=== PATIENT | female | born 1965 | race Caucasian/White ===

== ENCOUNTER → 2017-10-19 11:11 | Outpatient (CLI) | payer BC, SELFPAY ==
[2017-10-19 12:59] LABS: Estradiol 15.8 pg/mL; Follicle Stimulating Hormone 41.3 mIU/mL
== END ==
PROVIDERS: Family Provider Internal Medicine; PCP Internal Medicine; Visit Provider Obstetrics & Gynecology
DX: N95.1 Menopausal and female climacteric states (principal)
CPT/HCPCS: 82670; 83001

== ENCOUNTER → 2019-11-21 | Outpatient (CLI) | payer BC, SELFPAY ==
[2019-11-21 13:56] VITALS: BMI 30.4
[2019-11-25 14:26] LABS: HPV APTIMA, High Risk Negative (Negative)
== END | disposition home or self-care (01) ==
LOC: LABSPEC 16:45
PROVIDERS: PCP Internal Medicine; Referring Provider Obstetrics & Gynecology; Visit Provider Obstetrics & Gynecology
DX: Z12.4 Encounter for screening for malignant neoplasm of cervix (principal)
CPT/HCPCS: 87624; 88175; G0145

== ENCOUNTER → 2020-06-27 11:34 | Outpatient (CLI) | payer BC, SELFPAY ==
[2020-06-27 10:59] VITALS: BMI 27.1
[2020-06-27 13:20] LABS: Follicle Stimulating Hormone 22.1 mIU/mL
== END ==
PROVIDERS: PCP Student in an Organized Health Care Education/Training Program; Referring Provider Nurse Practitioner Women's Health; Visit Provider Nurse Practitioner Women's Health
DX: N92.1 Excessive and frequent menstruation with irregular cycle (principal)
CPT/HCPCS: 36415; 83001

== ENCOUNTER → 2020-07-04 13:53 | Outpatient (CLI) | payer BC, SELFPAY ==
[2020-06-27 10:59] VITALS: BMI 27.1
--- NOTE | 2020-07-04 13:56 | US_ITS ---
INDICATION: menorrhagia EXAMINATION: US Transvaginal Non-OB TECHNIQUE: Transabdominal and transvaginal (for optimal evaluation of the adnexa) pelvic ultrasound was performed. Grayscale, spectral waveform, and color flow Doppler evaluation of the adnexa. COMPARISON: None. FINDINGS: UTERUS: Anteverted. The uterus measures 8.9 x 5.7 x 5.1 cm. There is no uterine mass. The endometrial stripe measures 5 mm in AP diameter which is within normal limits. Nabothian cyst. IUD is present in appropriate position. RIGHT OVARY: Measures 4.3 x 1.8 x 1.6 cm. Non-enlarged, normal echogenicity. There is normal arterial inflow and venous outflow present in the right ovary. 2.2 cm dominant follicle. LEFT OVARY: Measures 2.6 x 1.7 x 1.2 cm. Non-enlarged, normal echogenicity. There is normal arterial inflow and venous outflow present in the left ovary. FREE FLUID: None. US/Transvaginal Non- IMPRESSION: Normal pelvic ultrasound. Electronically Signed: Lewis Martins MD at 16:33 EDT Tel , Service support ,
--- NOTE | 2020-07-04 13:56 | US_ITS ---
INDICATION: menorrhagia EXAMINATION: US Transvaginal Non-OB TECHNIQUE: Transabdominal and transvaginal (for optimal evaluation of the adnexa) pelvic ultrasound was performed. Grayscale, spectral waveform, and color flow Doppler evaluation of the adnexa. COMPARISON: None. FINDINGS: UTERUS: Anteverted. The uterus measures 8.9 x 5.7 x 5.1 cm. There is no uterine mass. The endometrial stripe measures 5 mm in AP diameter which is within normal limits. Nabothian cyst. IUD is present in appropriate position. RIGHT OVARY: Measures 4.3 x 1.8 x 1.6 cm. Non-enlarged, normal echogenicity. There is normal arterial inflow and venous outflow present in the right ovary. 2.2 cm dominant follicle. LEFT OVARY: Measures 2.6 x 1.7 x 1.2 cm. Non-enlarged, normal echogenicity. There is normal arterial inflow and venous outflow present in the left ovary. FREE FLUID: None. US/Pelvic (Non ) IMPRESSION: Normal pelvic ultrasound. Electronically Signed: Lewis aMrtins MD at 16:33 EDT Tel , Service support ,
== END ==
PROVIDERS: PCP Student in an Organized Health Care Education/Training Program; Referring Provider Nurse Practitioner Women's Health; Visit Provider Nurse Practitioner Women's Health
DX: N92.1 Excessive and frequent menstruation with irregular cycle (principal)
CPT/HCPCS: 76830; 76856

== ENCOUNTER → 2023-08-27 | Outpatient (CLI) | payer OTHER, SELFPAY ==
--- NOTE | 2023-08-27 10:54 | VDLE_ITS ---
Reason For Study: Rt calf pain RIGHT LEFT GSV is normal. CFV is compressible, spontaneous, phasic, CFV is compressible, spontaneous, phasic, competent, and demonstrates normal competent and demonstrates normal augmentation. augmentation. FV is compressible, spontaneous, phasic, competent and demonstrates normal augmentation. POP V is compressible, spontaneous, phasic, competent and demonstrates normal augmentation. T/P Trunk is compressible. PTV is compressible. RT PerV is compressible. Procedure This is a venous duplex using B-mode, color flow and spectral Doppler. Exam performed in department. A preliminary report was called and/or faxed to [facility]. VL/Venous Duplex US, Unilateral Interpretation Summary There is no evidence of right lower extremity deep vein thrombosis. Right great saphenous vein appears patent and compressible segmentally. Normal flow patterns left common f emoral vein Ordering Physician: FAVIOLA HUNTLEY Referring Physician: FAVIOLA HUNTLEY Performed By: Michelle Valverde RVT and Student
== END | disposition home or self-care (01) ==
LOC: CVS 10:49
PROVIDERS: PCP Student in an Organized Health Care Education/Training Program
DX: M79.661 Pain in right lower leg (principal); M79.89 Other specified soft tissue disorders
CPT/HCPCS: 93971

== ENCOUNTER → 2024-05-09 | Outpatient (CLI) | payer BC, SELFPAY ==
[2024-05-13 14:08] LABS: HPV APTIMA, High Risk Negative (Negative)
== END | disposition home or self-care (01) ==
LOC: LABSPEC 14:48
PROVIDERS: PCP Student in an Organized Health Care Education/Training Program; Referring Provider Obstetrics & Gynecology; Visit Provider Obstetrics & Gynecology
DX: Z12.4 Encounter for screening for malignant neoplasm of cervix (principal)
CPT/HCPCS: 87624; 88175; G0145